=== PATIENT | female | born 1975 | race Caucasian/White ===

== ENCOUNTER 2019-08-05 12:00 | Emergency (ER) | payer BC ==
[2019-08-05 12:32] VITALS: BP 140/97
--- NOTE | 2019-08-05 12:55 | ER Document Report ---
ED Medical Screen (RME) - General Chief Complaint: Passed Out Prior to Arrival Stated Complaint: PASSED OUT Time Seen by Provider: 08/05/19 12:49 Notes: Patient is a 44-year-old female presents to ED after syncopal episode. Patient states that she was drinking and started coughing and next thing she knew she was laying on the ground with her coworkers yelling at her. She was smoking at that time and she is an everyday smoker. She denies any head pain. Her coworker said that she hit the back of her head, but her hair is in a bun. She does have some abrasions to her left elbow, but denies any extremity pain. Exam: Alert and oriented x4. Small abrasions noted to left elbow. I have greeted and performed a rapid initial assessment of this patient. A comprehensive ED assessment and evaluation of the patient, analysis of test resu lts and completion of medical decision making process will be conducted by an additional ED providers. - Related Data Allergies/Adverse Reactions: No Known Allergies Allergy (Unverified 08/05/19 12:50) Physical Exam - Vital signs Vitals: Temp Pulse Resp BP Pulse Ox 98.0 F 69 18 140/97 H 97 08/05/19 12:12 08/05/19 12:12 08/05/19 12:12 08/05/19 12:12 08/05/19 12:12 Course - Vital Signs Vital signs: Temp Pulse Resp BP Pulse Ox 98.0 F 69 18 140/97 H 97 08/05/19 12:12 08/05/19 12:12 08/05/19 12:12 08/05/19 12:12 08/05/19 12:12
--- NOTE | 2019-08-05 13:09 | EKG REPORT ---
SEVERITY:- NORMAL ECG - SINUS RHYTHM : Confirmed by: Francisco Ray MD 05-Aug-2019 13:09:20
[2019-08-05 13:33] LABS: ABSOLUTE EOSINOPHILS # (AUTO) 0.2 10^3/uL (0.0-0.6); ABSOLUTE LYMPHOCYTES (AUTO) 1.7 10^3/uL (0.5-4.7); ABSOLUTE MONOCYTES (AUTO) 0.4 10^3/uL (0.1-1.4); ABSOLUTE NEUT (AUTO) 5.2 10^3/uL (1.7-8.2); BASOPHILS % (AUTO) 0.5 % (0-2); EOSINOPHILS % (AUTO) 2.6 % (0-6); HEMATOCRIT 42.7 % (36.0-47.0); HEMOGLOBIN 14.7 g/dL (12.0-15.5); LYMPHOCYTES % (AUTO) 22.8 % (13-45); MEAN CORPUSCULAR HEMOGLOBIN 32.3 pg (27.0-33.4); MEAN CORPUSCULAR HGB CONC 34.5 g/dL (32.0-36.0); MEAN CORPUSCULAR VOLUME 94 fl (80-97); MONOCYTES % (AUTO) 5.3 % (3-13); PLATELET COUNT 351 10^3/uL (150-450); RED BLOOD COUNT 4.57 10^6/uL (3.72-5.28); RED CELL DISTRIBUTION WIDTH 13.1 % (11.5-14.0); SEGMENTED NEUTROPHILS % (AUTO) 68.8 % (42-78); TOTAL CELLS COUNTED % (AUTO) 100 %; WHITE BLOOD COUNT 7.6 10^3/uL (4.0-10.5)
[2019-08-05 13:43] LABS: APPEARANCE,URINE CLEAR; BILIRUBIN,URINE NEGATIVE (NEGATIVE); COLOR,URINE STRAW; GLUCOSE, URINE NEGATIVE (NEGATIVE); KETONES,URINE NEGATIVE (NEGATIVE); LEUKOCYTE ESTERASE,URINE NEGATIVE (NEGATIVE); NITRITE,URINE NEGATIVE (NEGATIVE); PROTEIN,URINE NEGATIVE (NEGATIVE); URINE SPECIFIC GRAVITY 1.003; UROBILINOGEN,URINE NEGATIVE mg/dL (<2.0)
[2019-08-05 14:14] LABS: ALBUMIN 4.4 g/dL (3.5-5.0); ALKALINE PHOSPHATASE 78 U/L (38-126); ANION GAP 9 (5-19); ASPARTATE AMINO TRANSFERASE 22 U/L (14-36); BILIRUBIN,DIRECT 0.3 mg/dL (0.0-0.4); BILIRUBIN,TOTAL 0.4 mg/dL (0.2-1.3); BLOOD UREA NITROGEN 9 mg/dL (7-20); CALCIUM 9.3 mg/dL (8.4-10.2); CARBON DIOXIDE 27 mmol/L (22-30); CHLORIDE 103 mmol/L (98-107); GLUCOSE 95 mg/dL (75-110); POTASSIUM 4.3 mmol/L (3.6-5.0); TOTAL PROTEIN 7.6 g/dL (6.3-8.2)
--- NOTE | 2019-08-05 16:34 | ER Document Report ---
ED General - General Chief Complaint: Syncope Stated Complaint: PASSED OUT Time Seen by Provider: 08/05/19 12:49 TRAVEL OUTSIDE OF THE [place] IN LAST 30 DAYS: No - HPI Notes: Patient is a 44-year-old female who presents to the emergency department for evaluation after syncopal episode. She was outside on a picnic bench. She started drinking, it "went down the wrong pipe." She had a coughing fit, then stood up. She took 2 steps and passed out. Friends witnessed this. She did not hit her head. They state her eyes rolled back. She believes that she woke up nearly as soon as she hit the ground. She denies any chest pain or shortness of breath. No history of similar. She denies any other acute complaints or concerns. - Related Data Allergies/Adverse Reactions: No Known Allergies Allergy (Unverified 08/05/19 12:50) Past Medical History - General Information source: Patient - Social History Smoking Status: Current Every Day Smoker Chew tobacco use (# tins/day): No Frequency of alcohol use: None Drug Abuse: None Family History: Reviewed & Not Pertinent Patient has suicidal ideation: No Patient has homicidal ideation: No Musculoskeletal Medical History: Reports Hx Musculoskeletal Trauma - Patellar fracture Past Surgical History: Reports: Hx Section, Hx Orthopedic Surgery - rt knee, rt arm Review of Systems - Review of Systems Constitutional: No symptoms reported EENT: No symptoms reported Cardiovascular: No symptoms reported Respiratory: No symptoms reported Genitourinary: No symptoms reported Musculoskeletal: No symptoms reported Skin: No symptoms reported Neurological/Psychological: No symptoms reported Physical Exam - Vital signs Vitals: Temp Pulse Resp BP Pulse Ox 98.0 F 69 18 140/97 H 97 08/05/19 12:12 08/05/19 12:12 08/05/19 12:12 08/05/19 12:12 08/05/19 12:12 - Notes Notes: Vital signs reviewed, please refer to chart. Head is normocephalic, atraumatic. Pupils equal round, reactive to light. Neck is supple without meningismus. Heart is regular rate and rhythm. Lungs are clear to auscultation bilaterally. Abdomen is soft, nontender, normoactive bowel sounds throughout. Extremities without cyanosis, clubbing. Posterior calves are nontender. Peripheral pulses are equal. Skin is warm and dry. Patient is awake, alert, oriented x3. Cranial nerves II - XII are grossly intact without focal neurological deficits. Strength is plus 5 out of 5 bilateral upper and lower extremities. Sensation is intact. Reflexes symmetrical. Intact [id number], rapid alternating movements, [id number]. Course - Re-evaluation Re-evalutation: 08/05/19 16:31 Patient presents emergency department for evaluation. She had a syncopal episode following a coughing fit, and a change in position. My suspicion is that this is vasovagal in nature. She has no symptoms at this time. Her work- up here was essentially unremarkable. The patient is urged to quit smoking. She is urged to reestablish care with a primary physician here in [facility], or go back to her physician in [place]. Otherwise she is medically stable, will be discharged. She is to return to the ED with worsening. - Vital Signs Vital signs: Temp Pulse Resp BP Pulse Ox 98.0 F 69 18 140/97 H 97 08/05/19 12:12 08/05/19 12:12 08/05/19 12:12 08/05/19 12:12 08/05/19 12:12 - Laboratory Result Diagrams: 08/05/19 13:19 08/05/19 13:19 Laboratory results interpreted by me: 08/05/19 13:19 Urine Blood LARGE H - EKG Interpretation by Me Additional EKG results interpreted by me: 08/05/19 16:31 Sinus mechanism with a rate of 70 bpm. Normal axis and intervals, no acute ST changes concerning for ischemia or infarction. Discharge - Discharge Clinical Impression: Vasovagal syncope Condition: Stable Disposition: HOME, SELF-CARE Instructions: Syncopal Episode ([facility]) Additional Instructions: Rest. Follow-up with primary care next week. If you develop worsening or concerning symptoms of any sort, return immediately to the emergency department for reevaluation. Forms: Smoking Cessation Education
== END 2019-08-05 17:30 | disposition home or self-care (01) ==
LOC: ER 12:00
DX: R55 Syncope and collapse (principal); F17.200 Nicotine dependence, unspecified, uncomplicated
CPT/HCPCS: 36415; 80053; 81001; 84703; 85025; 93005; 93010; 99284